=== PATIENT | female | born 1945 | race Caucasian/White ===

== ENCOUNTER 2017-08-15 07:16 | Outpatient (CLI) | payer MEDICARE, OTHER ==
[2013-06-09 10:19] VITALS: BP 112/56
[2017-08-15 07:44] LABS: BASOPHILS % 1.5 (0.0-1.5); EOSINOPHILS % 7.6 % (0.0-6.8); MEAN CORPUSCULAR HEMOGLOBIN 32.3 pg (28.0-34.0); MEAN CORPUSCULAR VOLUME 94.8 fl (80.0-100.0); MONOCYTES % 5.1 % (0.0-11.0); NEUTROPHILS # 5.5 # k/uL (1.4-7.7)
[2017-08-15 08:13] LABS: eGFR (African) > 60; eGFR (Non-African) > 60
== END 2017-08-15 07:17 ==
LOC: LAB 07:16
PROVIDERS: ATTEND Family Medicine
DX: I10 Essential (primary) hypertension (principal)
CPT/HCPCS: 36415; 80053; 80061; 85025

== ENCOUNTER 2017-09-25 09:15 | Outpatient (CLI) | payer OTHER ==
[2013-06-09 10:19] VITALS: BP 112/56
[2017-09-25 09:31] LABS: MEAN CORPUSCULAR HEMOGLOBIN 32.4 pg (28.0-34.0); MEAN CORPUSCULAR VOLUME 95.6 fl (80.0-100.0)
[2017-09-25 10:24] LABS: eGFR (African) > 60; eGFR (Non-African) > 60
--- NOTE | 2017-09-25 10:47 | Diagnostic Imaging Report ---
LOULOU WORLEY [facility] [address] [facility] [address] [place], [place]. 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 Findings: Mild atrophy of the left kidney when compared with the right. No cortical or calyceal calcification. Ureters described a normal course through the abdomen and pelvis. No abnormal dilation. No central calcifications. Ureterovesicular junctions are within normal limits. Pelvic phleboliths. Liver, adrenals, gallbladder and pancreas are without gross irregularity given exam technique. No overt gallstone. 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 Abdominal aorta demonstrates peripheral atherosclerotic disease. No aneurysm. Cardiac silhouette not enlarged. No pericardial effusion. Bowel unopacified limiting evaluation. Prominent loops of small bowel within the lower abdomen associated with air-fluid levels. Prominent duodenum. No mesenteric inflammatory changes or free fluid. Stool throughout the large bowel limiting sensitivity. Appendix without inflammatory changes. Sigmoid diverticula. No adjacent inflammation. Hiatal hernia. Prominent uterus with presumed exophytic fibroid off the superior margin. Osseous structures demonstrate degenerative changes. Lung bases demonstrates parenchymal scarring and bronchiectasis. No effusion. Impression: No nephro or ureterolithiasis. Mildly mildly atrophic left kidney. Prominence of lower abdominal small bowel with air-fluid levels suggesting mild enteritis. Prominent duodenum. Sigmoid diverticulosis. No evidence for acute diverticulitis. Hiatal hernia. Prominent uterus with presumed fibroids. Lung base scarring and bronchiectasis. No effusion. Electronically signed on Sep 25, 2017 10:32:09 AM EXTRUDER OPERATOR VERTICAL by: Dennys LINARES
== END 2017-09-25 09:16 ==
LOC: LAB 09:15
PROVIDERS: ATTEND Family Medicine
DX: R10.31 Right lower quadrant pain (principal)
CPT/HCPCS: 36415; 74176; 80053; 85027

== ENCOUNTER 2018-04-21 19:37 | Emergency (ER) | payer OTHER ==
[2018-04-21] MEDS ORDERED: diphenhydrAMINE HCL 50 MG/ML VIAL IM ONE (19:42)
[2018-04-21] MEDS ORDERED: methylPREDNISolone SOD SUCC 125 MG/2 ML VIAL IM ONE (19:42)
--- NOTE | 2018-04-21 19:43 | ED Physician Documentation ---
General Adult - HISTORIAN Historian: patient - HPI Stated Complaint: allergic reaction Chief Complaint: General Adult Timing: still present Severity: moderate Further Comments: yes (Pt is a 72 yo female with an allergic reaction. Pt has periorbital swelling and facial erythema that occurred shortly after pt ate a raw potato, she says. Pt has had similar, milder, reactions to eating raw vegetables in the past. Pt also had nasal congestion, but no difficulty breathing or swallowing.) - ROS CONST: no problems EYES/ENT: other (b/l periorbital swelling) CVS/RESP: none GI/: none MS/SKIN/LYMPH: other (periorbital swelling, nasal congestion) - PAST HX Past History: other (hernia repair, tonsillectomy.) Allergies/Adverse Reactions: Allergies Allergy/AdvReac Type Severity Reaction Status Date / Time Sulfa (Sulfonamide Allergy Unknown Verified 04/21/18 19:53 Antibiotics) contrast dye AdvReac Intermediate Nasal Uncoded 04/21/18 19:55 Mucosa Swelling - SOCIAL HX Smoking History: non-smoker - FAMILY HX Family History: No - VITAL SIGNS Vital Signs: Vital Signs Temp Pulse Resp BP Pulse Ox 112/56 06/09/13 10:18 - REVIEWED ASSESSMENTS Nursing Assessment Reviewed: Yes Vitals Reviewed: Yes Progress - Progress Progress: Solu-medrol 125 mg IM Benadryl 25 mg IM Benadryl 25 mg po. much improved. d/c instructions: Rx Prednisone 50 mg. Take one by mouth once daily for 5 days. Benadryl (available over the counter). Use as directed. General Adult Physical Exam - PHYSICAL EXAM GENERAL APPEARANCE: moderate distress EENT: other (b/l periorbital and eyelid swelling/edema) NECK: normal inspection, supple RESPIRATORY: no resp distress, chest non-tender, breath sounds normal CVS: reg rate & rhythm, heart sounds normal BACK: normal inspection SKIN: other (b/l periorbital and eyelid swelling/edema, facial erythema.) EXTREMITIES: non-tender, normal range of motion, no evidence of injury NEURO: oriented X3, motor nml, sensation nml Discharge Clincal Impression: Allergic Reaction Referrals: Anali Krueger MD [Primary Care Provider] - Condition: Stable Disposition: 01 HOME, SELF-CARE Decision to Admit: NO Decision Time: 22:00
[2018-04-21] MEDS ORDERED: diphenhydrAMINE HCL 25 MG TABLET PO ONE (21:16)
[2018-04-21 22:47] VITALS: BP 149/57
== END 2018-04-21 22:15 | disposition home or self-care (01) ==
LOC: ED 19:37
DX: H05.229 Edema of unspecified orbit (principal); T78.40XA Allergy, unspecified, initial encounter; X58.XXXA Exposure to other specified factors, initial encounter; Y92.9 Unspecified place or not applicable; Y93.9 Activity, unspecified; Y99.9 Unspecified external cause status; L53.9 Erythematous condition, unspecified
CPT/HCPCS: J1200; J2930; Q0163; 96372

== ENCOUNTER 2018-09-05 07:00 | Outpatient (CLI) | payer OTHER ==
[2018-09-05 09:01] LABS: eGFR (Non-African) > 60
[2018-09-05 12:11] LABS: BASOPHILS % 0.6 (0.0-1.5); EOSINOPHILS % 5.7 % (0.0-6.8); MEAN CORPUSCULAR HEMOGLOBIN 31.2 pg (28.0-34.0); MONOCYTES % 6.8 % (0.0-11.0)
--- NOTE | 2018-09-05 16:23 | Diagnostic Imaging Report ---
LOULOU WORLEY [facility] [address] [facility] [address] [place] [address]. 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 History: CXR, DYSPNEA ON EXERTION, PT STATES HX OF ASTHMA (Hx) / Findings: No comparison studies are provided. The cardiac and mediastinal silhouettes are normal. No definite infiltrate or effusion is identified. There is a right lower lobe lung granuloma. The trachea is midline and aortic arch contour is normal. The pulmonary vascularity is within normal limits. There is multilevel degenerative thoracic spondylosis. Impression: No acute cardiopulmonary abnormality. Electronically signed on Sep 05, 2018 7:40:36 AM CIGARETTE LIGHTER REPAIRER by: Liliane LINARES
== END 2018-09-05 07:03 ==
LOC: LAB 07:00
PROVIDERS: ATTEND Family Medicine
DX: E78.2 Mixed hyperlipidemia (principal); D64.9 Anemia, unspecified; L65.9 Nonscarring hair loss, unspecified; R06.09 Other forms of dyspnea
CPT/HCPCS: 36415; 71046; 80053; 80061; 84443; 85025

== ENCOUNTER 2019-09-22 13:59 | Outpatient (CLI) | payer OTHER | END 2019-09-22 14:04 | LOC: LABRHC 13:59 | PROVIDERS: ATTEND Family Medicine | DX: I10 Essential (primary) hypertension (principal); Z79.899 Other long term (current) drug therapy | CPT/HCPCS: 80053; 83735 ==